=== PATIENT | female | born 1975 | race Asian ===

== ENCOUNTER 2021-11-16 16:07 | Emergency (ER) | payer OTHER ==
[~2021-11-16] VITALS: Ht 149.9 cm; Wt 77.0 kg
[2021-11-16 17:18] LABS: APPEARANCE,URINE CLEAR (CLEAR); BILIRUBIN,URINE NEGATIVE (NEGATIVE); GLUCOSE, URINE (UA) >=1000 mg/dL (NEGATIVE); KETONES,URINE NEGATIVE (NEGATIVE); LEUKOCYTE ESTERASE ,URINE NEGATIVE (NEGATIVE); NITRATE,URINE NEGATIVE (NEGATIVE); OCCULT BLOOD,URINE NEGATIVE (NEGATIVE); PH,URINE 5.5 (5.0-8.0); PROTEIN,URINE NEGATIVE (NEGATIVE); UROBILINOGEN,URINE <=1.0 mg/dL (<=1.0)
[2021-11-16 17:37] LABS: BACTERIA,URINE Few /HPF (None Seen); RBC,URINE None Seen /HPF (0-2); SQUAMOUS EPITHELIAL CELL,UR Moderate /LPF (None Seen); WBC,URINE 0-2 /HPF (0-5)
[2021-11-16] MEDS ORDERED: LIDOCAINE/PF 1% 2 ML VIAL IM ONE (19:45)
[2021-11-16] MEDS ORDERED: CefTRIAXone SODIUM 1 GM/VIAL IM ONE (19:45)
[2021-11-16] MEDS ORDERED: DOXY-354 PO (19:46)
[2021-11-16 20:20] VITALS: BP 115/54
== END 2021-11-16 21:20 | disposition home or self-care (01) ==
LOC: EMS 16:12
DX: N34.2 Other urethritis (principal); E11.9 Type 2 diabetes mellitus without complications; E78.00 Pure hypercholesterolemia, unspecified; Z88.6 Allergy status to analgesic agent
CPT/HCPCS: 81001; 82948; 84703; 87210; 87491; 87591; 96372; 99283; J0696; J3490

== ENCOUNTER 2023-06-23 00:45 | Emergency (ER) | payer OTHER ==
[~2023-06-23] VITALS: Ht 149.9 cm; Wt 73.0 kg
[~2023-06-23 00:45] MED LIST: DOXY-354 PO
[2023-06-23 02:44] LABS: BASOPHILS % (AUTO) 0.7 % (0.0-2.0); HEMATOCRIT 39.6 % (36-46); HEMOGLOBIN 13.4 g/dL (12.0-16.0); LYMPHOCYTES # (AUTO) 2.8 K/uL (1.0-4.8); LYMPHOCYTES % (AUTO) 26.5 % (22.0-44.0); MEAN CORPUSCULAR HEMOGLOBIN 30.2 pg (26.0-34.0); MEAN CORPUSCULAR HGB CONC 33.9 G/dL (31.0-37.0); MEAN CORPUSCULAR VOLUME 89 fL (80-100); MONOCYTES # (AUTO) 0.6 K/uL (0.1-1.0); MONOCYTES % (AUTO) 5.4 % (2.0-9.0); NEUTROPHILS # (AUTO) 6.2 K/uL (1.8-7.7); NEUTROPHILS % (AUTO) 59.4 % (40.0-70.0); PLATELET COUNT (AUTO) 193 K/uL (150-450); RED BLOOD CELL COUNT(AUTO) 4.45 MIL/uL (4.00-5.20); WHITE BLOOD COUNT (AUTO) 10.5 K/uL (4.5-11.0)
[2023-06-23 02:52] LABS: ANION GAP 8 mmol/L (8-16); CALCIUM, TOTAL 9.3 mg/dL (8.8-10.5); CARBON DIOXIDE 28 mmol/L (22-29); CHLORIDE 100 mmol/L (98-107); CREATININE 0.78 mg/dL (0.60-1.30); GLOMERULAR FILTR. RATE CALC > 60 mL/min (>60); GLUCOSE,RANDOM 262 mg/dL (70-110); POTASSIUM 3.6 mmol/L (3.5-5.1); SODIUM SERUM 136 mmol/L (136-145); UREA NITROGEN, BLOOD 17 mg/dL (7-18)
[2023-06-23 02:59] LABS: ALANINE AMINOTRANSFERASE 26 U/L (12-78); ALBUMIN 3.6 g/dL (3.4-5.0); ALKALINE PHOSPHATASE 48 U/L (46-116); ASPARTATE AMINOTRANSFERASE 11 U/L (15-37); BILIRUBIN,TOTAL 0.2 mg/dL (0.1-1.0); TOTAL PROTEIN, SERUM 7.1 g/dL (6.4-8.2)
[2023-06-23] MEDS ORDERED: IBUP-1492 PO (04:45)
[2023-06-23 05:02] VITALS: BP 115/78; PULSE 80; RESP 17; TEMP 98
== END 2023-06-23 05:02 | disposition still patient (30) ==
LOC: EMS 00:45
DX: S52.612A Displaced fracture of left ulna styloid process, initial encounter for closed fracture (principal); E11.9 Type 2 diabetes mellitus without complications; E78.00 Pure hypercholesterolemia, unspecified; Z88.8 Allergy status to other drugs, medicaments and biological substances; X58.XXXA Exposure to other specified factors, initial encounter; Y93.89 Activity, other specified; Y92.89 Other specified places as the place of occurrence of the external cause; Y99.8 Other external cause status
CPT/HCPCS: 73200; 80053; 85025; 99284